=== PATIENT | female | born 1970 | race Caucasian/White ===

== ENCOUNTER 2017-09-30 19:22 | Inpatient (IN) ==
[2017-09-30] MEDS ORDERED: SODIUM CHLORIDE 1,000 ML IV STA (19:35)
[2017-09-30] MEDS ORDERED: ROCEPHIN 1 GM in SODIUM CHLORIDE 50 ML IV STA (19:36)
[2017-09-30] MEDS ORDERED: DUONEB NEB STA (19:36)
[2017-09-30] MEDS ORDERED: ROCEPHIN ONE (20:14)
--- NOTE | 2017-09-30 20:17 | CT ---
EXAM: CT chest without contrast HISTORY: Cough TECHNIQUE: Multi-slice transaxial helical. Coronal and sagital reformations were performed. COMPARISON: None FINDINGS: The heart is normal in size. Trace pericardial fluid is present. Minimal coronary artery calcificat ion is seen. The ascending aorta measures up to 41 mm in diameter. Small amount of fluid in the sup erior pericardial recesses are present. Small scattered mediastinal lymph nodes measure less than 10 mm in short axis. Visualized thyroid appears unremarkable. There is no axillary adenopathy. The gallbladder has been removed. Otherwise the partially imaged upper abdomen appears unremarkable. Osseous structures appea r unremarkable. Right upper lobe, right middle lobe, and left upper lobe patchy airspace opacities are present. Airw ay thickening is present. Minimal dependent atelectasis is present within the lung bases. No eviden ce of pleural effusion or pneumothorax is seen. IMPRESSION: 1. Multi focal bilateral pneumonia. Recommend follow-up CT chest in two - 3 months to ensure complet e resolution. 2. Superimposed airway thickening suggesting bronchiolitis. 3. Ascending thoracic aortic aneurysm measuring 41 mm. 4. Minimal coronary artery atherosclerosis. 5. Other incidental findings as above.
--- NOTE | 2017-09-30 20:23 | ED.PDOC ---
General ED Provider: Dr. DEANNE STEINBERG-ER Chief Complaint: Shortness of Air Stated Complaint: i went to clinic and was dx with flu--im no better--im still running fever and coughing Time Seen by Physician: 19:25 Mode of Arrival: Walk-In Information Source: Patient Exam Limitations: No limitations Nursing and Triage Documentation Reviewed and Agree: Yes Reviewed sepsis parameters & appropriate labs ordered?: Yes System Inflammatory Response Syndrome: Not Applicable Sepsis Protocol: For patient's 13 years and over: Temp is 96.8 and below OR 101 and greater Pulse >90 BPM Resp >20/minute Acutely Altered Mental Status Are patient's symptoms suggestive of a new infection, such as: -Pneumonia -Skin, Soft Tissue -Endocarditis -UTI -Bone, Joint Infection -Implantable Device -Acute Abdominal Infection -Wound Infection -Meningitis -Blood Stream Catheter Infection -Unknown Respiratory Complaint Exam - Respiratory Complaint/Exam Onset/Duration: 4 days Symptoms Are: Still present Timing: Constant, Intermittent Initial Severity: Mild Current Severity: Moderate Location: Chest Character: Reports: Productive cough Aggravating: Reports: URI Alleviating: Reports: Bronchodilators Associated Signs and Symptoms: Reports: Fever, Chills, URI, Nasal congestion, Sore throat, Decreased oral intake. Denies: Rapid breathing, Dyspnea, Chest pain, Wheezing, Hemoptysis, Dizziness, Calf pain, Calf swelling, Edema, Hoarseness, Sinus discomfort, Vomiting, Weight loss, Increased thirst, Increased appetite, Increased urination History of Healthcare-Acquired Pneumonia: No Home Oxygen Use: No Recent Stress Test: No Recent Echo/LV Function: No Current Antibiotic Use: No Current Asthma Medication Use: No Respiratory Distress: None Inadequate Respiratory Effort: No Dysphagia Present: No Stridor Present: No JVD Present: No Accessory Muscle Use: No Retractions: Not Present Diminished Breath Sounds: No Sinus Tenderness: None Grunting Respirations: No Kussmaul Respirations: No Differential Diagnoses: Pneumonia, Bronchitis, Influenza Non-Traumatic Chest Pain Syncope: EKG Performed Review of Systems - Review Of Systems Constitutional: Reports: Chills, Fever, Weakness, Loss of appetite Eyes: Reports: No symptoms Ears, Nose, Mouth, Throat: Reports: Nose discharge Respiratory: Reports: Cough Cardiac: Reports: No symptoms GI: Reports: No symptoms : Reports: No symptoms Musculoskeletal: Reports: No symptoms Skin: Reports: No symptoms Neurological: Reports: No symptoms Endocrine: Reports: No symptoms Hematologic/Lymphatic: Reports: No symptoms All Other Systems: Reviewed and Negative Past Medical History - Past Medical History Previously Healthy: Yes Endocrine: Reports: Unknown Cardiovascular: Reports: Unknown Respiratory: Reports: Unknown Hematological: Reports: Unknown Gastrointestinal: Reports: Unknown Genitourinary: Reports: Unknown Neuro/Psych: Reports: Unknown Musculoskeletal: Reports: Unknown Cancer: Reports: Unknown Last Menstrual Period: PT HAS HAD A HYSTERECTOMY - Surgical History General Surgical History: Reports: Unknown - Family History Family History: Reports: Unknown - Social History Smoking Status: Current every day smoker, Heavy tobacco smoker Hx Substance Use: No Alcohol Screening: Occasionally Lives: With family - Immunizations Tetanus Shot up to Date: Yes Physical Exam - Physical Exam Appearance: Ill-appearing Eyes: VENESSA, EOMI, Conjunctiva clear ENT: Rhinorrhea Neck: Supple Respiratory: Crackles, Rhonchi Cardiovascular: RRR GI/: Soft, Nontender, No masses, Bowel sounds normal, No Organomegaly Musculoskeletal: Normal strength, ROM intact, No edema, No calf tenderness Skin: Warm, Dry, Normal color Neurological: Sensation intact, Motor intact, Reflexes intact, Cranial nerves intact, Alert, Oriented Psychiatric: Affect appropriate, Mood appropriate Interpretation - Radiology Interpretation Radiology Interpretation By: Radiologist Radiology Results: Positive Exam Interpreted: CT Scan ("bilateral pneumonia") - EKG Interpretation Time of EKG #1: 20:24 Rate: Normal Rhythm: Sinus Ectopy: None ST Segment: Normal Interpretation: normal sinus rythym Physician Notification - Case Discussed Physician Notified: dr clark(he examined patient in ed) Time of Notification: 20:25 Critical Care Note - Critical Care Note Total Time (mins): 0 Course - Course Hematology/Chemistry: 09/30/17 19:55 09/30/17 19:55 Orders, Labs, Meds: Lab Review 09/30/17 09/30/17 09/30/17 19:30 19:34 19:55 WBC 9.59 RBC 5.05 Hgb 15.8 Hct 47.1 H MCV 93.3 MCH 31.3 H MCHC 33.5 RDW Coeff of Dg 13.2 Plt Count 275 Immature Gran % (Auto) 0.3 Neut % (Auto) 57.3 Lymph % (Auto) 26.9 [place] % (Auto) 14.3 H Eos % (Auto) 0.2 Baso % (Auto) 1.0 Immature Gran # (Auto) 0.0 Neut # 5.5 Lymph # 2.6 [place] # 1.4 Eos # 0.0 Baso # 0.1 Puncture Site Lb O2 Saturation 94.0 L ABG pH 7.414 ABG pCO2 32.4 L ABG pO2 71.0 L ABG HCO3 20.7 L ABG Total CO2 22 ABG Base Excess -4 L Eddie Test + FiO2 % 21.0 Sodium Potassium Chloride Carbon Dioxide Anion Gap BUN Creatinine Estimated GFR (MDRD) BUN/Creatinine Ratio Glucose Lactic Acid Calcium Total Bilirubin AST ALT Alkaline Phosphatase Total Protein Albumin Globulin Albumin/Globulin Ratio Procalcitonin Influenza A (Rapid) Negative by naat Influenza B (Rapid) Positive by naat H 09/30/17 09/30/17 09/30/17 19:55 19:55 19:55 WBC RBC Hgb Hct MCV MCH MCHC RDW Coeff of Dg Plt Count Immature Gran % (Auto) Neut % (Auto) Lymph % (Auto) [place] % (Auto) Eos % (Auto) Baso % (Auto) Immature Gran # (Auto) Neut # Lymph # [place] # Eos # Baso # Puncture Site O2 Saturation ABG pH ABG pCO2 ABG pO2 ABG HCO3 ABG Total CO2 ABG Base Excess Eddie Test FiO2 % Sodium 139 Potassium 3.5 Chloride 106 Carbon Dioxide 20 L Anion Gap 16.5 BUN 19 H Creatinine 1.14 Estimated GFR (MDRD) 51.00 BUN/Creatinine Ratio 16.66 Glucose 128 H Lactic Acid 15.2 Calcium 9.2 Total Bilirubin 0.4 AST 24 ALT 24 Alkaline Phosphatase 80 Total Protein 7.7 Albumin 3.3 L Globulin 4.4 Albumin/Globulin Ratio 0.75 Procalcitonin < 0.05 Influenza A (Rapid) Influenza B (Rapid) Orders Category Date Time Status ABG DRAW REQUEST Stat CARDIO 09/30/17 19:35 Completed EKG-(ED ONLY) Stat CARDIO 09/30/17 19:37 Completed NEBULIZER TREATMENT Stat CARDIO 09/30/17 19:36 Completed ED IV/MEDIPORT/POWERPORT .ONCE EMERGENCY 09/30/17 19:35 Active ABG Stat LAB 09/30/17 19:34 Completed BLOOD CULTURE (ED ONLY) Stat LAB 09/30/17 19:55 Received CBC W/ AUTO DIFF Stat LAB 09/30/17 19:55 Completed COMPREHENSIVE METABOLIC PANEL Stat LAB 09/30/17 19:55 Completed FLU A/B MOLECULAR Stat LAB 09/30/17 19:30 Completed LACTIC ACID Stat LAB 09/30/17 19:55 Completed MOLECULAR GROUP A STREP Stat LAB 09/30/17 19:30 Completed PROCALCITONIN Stat LAB 09/30/17 19:55 Completed 0.9 % Sodium Chloride [Saline Flush] MEDS 09/30/17 19:35 Ordered 1 syr IVF PRN PRN Ceftriaxone Sodium [Rocephin] MEDS 09/30/17 20:14 Discontinued 1 gm .ROUTE .STK-MED ONE Ceftriaxone Sodium [Rocephin] 1 gm MEDS 09/30/17 19:36 Discontinued 0.9 % Sodium Chloride [Sodium Chloride] 50 ml IV ONCE Ipratropium/Albuterol Neb [Duoneb] MEDS 09/30/17 19:36 Discontinued 1 vial NEB ONCE STA Sodium Chloride 0.9% [Sodium Chloride] 1,000 ml MEDS 09/30/17 19:[address] CHEST W/O CONTRAST Stat RADS 09/30/17 19:36 Completed Medications Generic Name Dose Route Start Last Admin Trade Name Freq PRN Reason Stop Dose Admin Sodium Chloride 1,000 mls @ 1,000 mls/hr 09/30/17 19:35 09/30/17 20:18 Sodium Chloride IV 09/30/17 20:34 1,000 mls/hr BOLUS STA Administration Sodium Chloride 1 syr 09/30/17 19:35 Saline Flush IVF PRN PRN To flush IV Discontinued Medications Generic Name Dose Route Start Last Admin Trade Name Freq PRN Reason Stop Dose Admin Albuterol/Ipratropium 1 vial 09/30/17 19:36 09/30/17 20:11 Duoneb NEB 09/30/17 19:37 1 vial ONCE STA Administration Ceftriaxone Sodium 1 gm/ 50 mls @ 75 mls/hr 09/30/17 19:36 09/30/17 20:19 Sodium Chloride IV 09/30/17 20:15 75 mls/hr ONCE STA Administration Vital Signs: Temp Pulse Resp BP Pulse Ox 09/30/17 19:23 99 F 104 H 36 H 137/88 96 Departure - Departure Time of Disposition: 20:25 Disposition: ADMITTED INPATIENT Discharge Problem: Influenza Pneumonia Qualifiers: Pneumonia type: due to unspecified organism Laterality: bilateral Lung location : unspecified part of lung Qualified Code(s): J18.9 - Pneumonia, unspecified organism Instructions: Influenza (ED) Condition: Fair Pt referred to PMD for follow-up: Yes IPMP verified?: No Allergies/Adverse Reactions: Allergies No Known Drug Allergies Adverse Reaction (Verified 09/30/17 19:33) Home Medications: Ambulatory Orders Bupropion HCl [Bupropion HCl Sr] 150 mg PO BID 09/30/17 Escitalopram Oxalate 10 mg PO DAILY 09/30/17 Esomeprazole Magnesium [Nexium 24Hr] 20 mg PO DAILY 09/30/17 Topiramate [Topamax] 50 mg PO BID 09/30/17 Triamcinolone Acetonide [Triamcinolone Acetonide 0.1% Ointment] 15 gm TP TID 07/07 Disposition Discussed With: Patient, Family
[2017-09-30] MEDS ORDERED: TYLENOL PO PRN (20:30)
[2017-09-30] MEDS ORDERED: NON-FORMULARY MEDICATION (Bupropion Hcl [Bupropion Hcl Sr] 150 MG) PO SCH (21:00)
[2017-09-30] MEDS: SODIUM CHLORIDE 1,000 ML IV SCH (21:28)
[2017-09-30 21:49] VITALS: BMI 28.6
[2017-09-30] MEDS ORDERED: WELLBUTRIN SR ONE ×2 (22:34→22:36)
[2017-09-30] MEDS ORDERED: KENALOG 0.1% TP ONE (22:36)
[2017-09-30] MEDS ORDERED: DUONEB NEB ONE (22:55)
[2017-09-30] MEDS: DUONEB NEB SCH (22:55)
[2017-09-30] MEDS: TOPAMAX PO SCH (22:57)
[2017-09-30] MEDS: VANCOMYCIN 1 GM in SODIUM CHLORIDE 250 ML IV SCH (23:16)
[2017-10-01] MEDS ORDERED: NORCO 5-325 PO PRN (00:31)
[2017-10-01] MEDS: DUONEB NEB SCH ×3 (05:04→20:00)
[2017-10-01] MEDS: PROTONIX PO SCH (07:42)
[2017-10-01] MEDS: VANCOMYCIN 1 GM in SODIUM CHLORIDE 250 ML IV SCH ×2 (08:08→20:04)
[2017-10-01] MEDS: TOPAMAX PO SCH ×2 (08:08→20:05)
[2017-10-01] MEDS: LEXAPRO PO SCH (08:08)
[2017-10-01] MEDS: TAMIFLU PO SCH ×2 (08:09→20:05)
[2017-10-01] MEDS: KENALOG 0.1% TP SCH ×3 (08:09→20:05)
[2017-10-01] MEDS: WELLBUTRIN SR PO SCH ×2 (08:09→20:05)
[2017-10-01] MEDS ORDERED: DECADRON 4 MG/ML SDV IM STA (08:21)
[2017-10-01] MEDS ORDERED: ESOMEPRAZOLE MAGNESIUM 20 MG PO SCH (09:00)
[2017-10-01] MEDS ORDERED: ZITHROMAX 500 MG in SODIUM CHLORIDE 250 ML IV SCH (09:00)
[2017-10-01] MEDS: ROCEPHIN 1 GM in SODIUM CHLORIDE 50 ML IV SCH (09:38)
[2017-10-01] MEDS: ZITHROMAX PO SCH (09:39)
--- NOTE | 2017-10-01 10:32 | DI ---
EXAM: Chest two view, frontal and lateral views. HISTORY: Pneumonia follow-up. COMPARISON: 09/30/2017. FINDINGS: Heart size is normal. There is no vascular congestion. Thin linear opacities are seen in the left lung base. Mild right upper lobe perifissural consolidation is stable. Small nodular dens ities in both lungs also appear unchanged. No pleural effusion or pneumothorax identified. Clips se en in the upper abdomen. No acute osseous abnormality. IMPRESSION: Stable appearance of the chest of consolidation, greatest in the right upper lobe. Follow-up radiogr aphs in 4-6 weeks recommended for reassessment.
--- NOTE | 2017-10-01 11:12 | PCM.CONS ---
CONSULTING PROVIDER: Dr. LEWIS PUGA ATTENDING PROVIDER: Dr. Farzana LORA DATE OF SERVICE: 10/01/17 SUBJECTIVE: This 46 year old WHITE/ F was hospitalized 09/30/17. The patient is seen by Sue Orosco APRN. The patient is lying in bed, alert. She came in to ER last night with coughing, mild shortness of breath and pleuritic type pain , positive for Flu B. Chest x-ray revealed bilateral pneumonia, small aortic aneurysm at 41 mm. The patient is a smoker and has family history of coronary artery disease. She states PCP is [facility] in [place]. REVIEW OF SYSTEMS: CONSTITUTIONAL: Fatigue. No night sweats. No malaise, lethargy. No fever or chills. HEENT: Eyes: No visual changes. No eye pain. No eye discharge. ENT: No runny nose. No epistaxis. No sinus pain. No odynophagia. No congestion. RESPIRATORY: Cough and congestion. No hemoptysis. No shortness of breath. CARDIOVASCULAR: No angina symptoms. No CHF symptoms. Pleuritic pain. No palpitations. No orthopnea. GASTROINTESTINAL: No abdominal pain. No nausea or vomiting. No diarrhea or constipation. No hematemesis. No hematochezia. GENITOURINARY: No urgency. No frequency. No dysuria. No hematuria. No obstructive symptoms. No discharge. No pain. No significant abnormal bleeding. MUSCULOSKELETAL: No musculoskeletal pain; no joint swelling. NEUROLOGICAL: Awake, alert, oriented to time, place and person. No headache. No neck pain. No syncope. No seizures. No dizziness. PSYCHIATRIC: Not anxious. No depression. No suicidal thoughts. No homicidal thoughts. SKIN: No rash. No lesions. No wounds. ENDOCRINE: No unexplained weight loss. No weight gain. HEMATOLOGIC/LYMPHATIC: No anemia. No purpura. No petechiae. No prolonged or excessive bleeding. No palpable lymph nodes. PHYSICAL EXAMINATION: GENERAL: The patient is awake, alert and oriented, lying in bed in no distress. VITAL SIGNS: Temperature 97.8 F, Pulse 78, Respiratory Rate 18, BP 126/78, Pulse Ox 94% HEENT: Head normocephalic, atraumatic. Eyes: Extraocular muscles are intact. Pupils are equal, round and reactive to light and accommodation. Ears: No lesions. Nose appeared normal. Throat: No exudate or erythema. NECK: Supple. No JVD, no carotid bruit. No lymphadenopathy or thyromegaly. LUNGS: Diminished breath sounds bilaterally. Clear to auscultation. Percussion note normal. Chest symmetrical. HEART: S1, S2, no S3. No murmurs. No cyanosis or clubbing. No ascites. Pulses: Dorsalis pedis and posterior tibial pulses +1 to +2 both sides. ABDOMEN: Soft. Non-tender. Bowel sounds active. No CVA tenderness. No mass felt. EXTREMITIES: No edema. Full range of motion of all extremities, equal. NEUROLOGIC: No focal deficit. Cranial nerves II through XII are grossly intact. No headache, no double vision or headache. SKIN: Warm and dry. Intact. Turgor-normal. LYMPHATIC: No palpable lymph nodes/no lymphedema. MUSCULOSKELETAL: Normal joints with no swelling. Muscle tone is normal. ASSESSMENT: 1. FLU B 2. BILATERAL PNEUMONIA 3. PLEURITIC PAIN 4. SMOKER 5. AORTIC ANEURYSM 41 mm RECOMMENDATIONS/PLAN: 1. Lipid profile 2. T4, TSH 3. A1C 4. 1 cc Decadron today Plan and coordination of the patient's care discussed in the presence of [employer]ing [employer] Operator and Nurse. CONDITION: Stable SCRIBED BY: Kourtney MARTÍNEZist scribed while in presence of service performed by Dr. LEWIS PUGA/SUE OROSCO APRN on 10/01/17 ([id number])
[2017-10-01] MEDS: SODIUM CHLORIDE 1,000 ML IV SCH (13:44)
[2017-10-01] MEDS ORDERED: LOVENOX SUBCUT SCH (20:00)
[2017-10-01] MEDS ORDERED: LOVENOX ONE (20:11)
[2017-10-02] MEDS: SODIUM CHLORIDE 1,000 ML IV SCH ×2 (06:09→20:24)
[2017-10-02] MEDS: DUONEB NEB SCH ×4 (06:10→19:25)
[2017-10-02] MEDS: PROTONIX PO SCH (06:35)
[2017-10-02] MEDS: ROCEPHIN 1 GM in SODIUM CHLORIDE 50 ML IV SCH (08:14)
[2017-10-02] MEDS: TOPAMAX PO SCH ×2 (08:16→20:23)
[2017-10-02] MEDS: ZITHROMAX PO SCH (08:16)
[2017-10-02] MEDS: LEXAPRO PO SCH (08:16)
[2017-10-02] MEDS: WELLBUTRIN SR PO SCH ×2 (08:16→20:23)
[2017-10-02] MEDS: TAMIFLU PO SCH ×2 (08:16→20:23)
[2017-10-02] MEDS: KENALOG 0.1% TP SCH ×3 (08:17→20:30)
--- NOTE | 2017-10-02 08:33 | HP ---
CHIEF COMPLAINT: Cough, fever and shortness of breath. SOURCE OF HISTORY: Patient, triage notes and MD notes from the ER. HISTORY OF PRESENT ILLNESS: The patient claimed that she began experiencing illness last Sunday, five days prior to presentation to the emergency room. She had fever, muscular aches, headaches, decreased appetite, but no vomiting. She presented to an urgent care in [place] two days later, and was told that she has influenza and was prescribed Promethazine DM cough syrup. The patient continued to be febrile with cough and now increasing shortness of breath prompting the emergency room visit. The patient was noted to have rales in both lung person without wheezing. WBC normal 9,590. Arterial blood gases showed moderate hypoxemia. PO2 71, PCO2 32.4, oxygen saturation 94 at room air , pH 7.414. Lactic acid normal at 15.2. Rapid influenza A and B positive for B. Procalcitonin less than 0.05. CT scan of the chest showed right upper and left upper lobe pneumonia including the right middle lobe. The patient was felt needing admission to the hospital for IV antibiotics and for the care and observation. Blood culture was done, as well as sputum was ordered. PAST PERSONAL HISTORY: The patient had cholecystectomy 1997, hysterectomy 1997 and she had a PAP smear 2016. FAMILY HISTORY: Mother had thyroid nodules. Grandfather had myocardial infarction. Father had congestive heart failure and diabetes mellitus. Grandmother had malignancy. 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 She does smoke cigarettes heavily and continuously. She does drink alcoholic beverages, but not every day. She does have the same address in [place], [place] with her mother. MEDICATIONS: Escitalopram Oxalate 10 mg daily Bupropion HCI 150 mg twice daily Triamcinolone Acetonide 15 grams ointment three times daily Topiramate 50 mg twice daily ALLERGIES: No known drug allergies. REVIEW OF SYSTEMS: CONSTITUTIONAL: The patient has fever and chills and fatigue with decreased appetite. MOTOR ELECTRICIAN: The patient has headache, but no syncopal episodes and no seizure activities. VISUAL: Denies any blurred vision, double vision or loss of vision. AUDITORY: Hearing is adequate without any dizziness and denies any pain or drainage. No tinnitus. RESPIRATORY: The patient is complaining of cough, slightly productive with some shortness of breath. CARDIOVASCULAR: The patient has chest pain described as sharp and aggravated by coughing. It is not an oppressive pain. GASTROINTESTINAL: GENITOURINARY: The patient denies any pain on urination or frequency. MUSCULOSKELETAL: The patient does have muscular aches. ENDOCRINE: Negative. INTEGUMENT: Denies any rash or pruritus. HEMATOLOGIC: No history of prolonged bleeding. PSYCHIATRIC: Affect is dull, probably because of the illness. PHYSICAL EXAMINATION: GENERAL: We have a 46 year old female legally admitted to the hospital because of fever, increasing shortness of breath and cough with bilateral upper lobe pneumonia on CT including the right middle lobe. She has moderate hypoxemia. HEAD: Unremarkable. FACE: Symmetrical and equal with no facial weakness. She denies any significant tenderness in the frontal or maxillary sinus areas to palpation under pressure. EYES: Pupils equal/reactive to light about 3 mm in size and round. Conjunctivae not pale. Sclerae not icteric. MOUTH: unremarkable. THROAT: No inflammation, tumors or exudate. NECK: No masses. No bruit. No tenderness. No rigidity. No adenopathy or adenitis. Neck has a good range of motion. CHEST: Symmetrical and equal with good expansion. No remarkable tenderness. LUNGS: Breath sounds are heard in both sides, diminished with rales more on the right side. No wheezing. HEART: Audible and regular with good tones. No murmurs. ABDOMEN: Flat, soft with no remarkable tenderness. No guarding. Bowel sounds are active. No masses palpable. EXTERNAL GENITALIA: Not examined. RECTAL: Not performed. LOWER EXTREMITIES: Essentially symmetrical and equal with no significant edema. UPPER EXTREMITIES: Symmetrical and equal. ASSESSMENT: 1. BILATERAL UPPER LOBE PNEUMONITIS 2. RIGHT MIDDLE LOBE PNEUMONITIS 3. MODERATE HYPOXEMIA 4. POSITIVE INFLUENZA B 5. CHRONIC TOBACCO USE AND ABUSE, PERSISTENT 6. HISTORY OF DEPRESSION ON MEDICATION 7. HISTORY OF GERD ON MEDICATION MTDD
[2017-10-02] MEDS: VANCOMYCIN 1 GM in SODIUM CHLORIDE 250 ML IV SCH ×2 (09:00→20:24)
--- NOTE | 2017-10-02 09:47 | PN ---
DATE OF VISIT: 10/01/17 The patient was in bed when I walked into the room. I did talk to the patient and she claimed that she is feeling some better. I did tell her that I had stopped the Tylenol for the fever. Her color is good. She is not cyanotic. The chest is expanding well. VITAL SIGNS: At 5:31 p.m. showed a temperature of 97.8, pulse 80, blood pressure 138/83, respiratory rate 20, oxygen saturation 94 at room air. LUNGS: The lungs has rales more on the right side, but no wheezing. HEART: Audible and regular with good tones. ABDOMEN: Nontender. This patient is receiving and IV consisting of normal saline at 75 cc per hour. Also receiving Vancomycin 1 gram IV every 12 hours. Protonix 40 mg daily IV. Rocephin 1 gram IV daily and was initiated on Tamiflu 75 every 12 hours from the emergency room. Zithromax 500 mg p.o. daily. She does also receive DuoNeb nebulizer ordered four times a day. ASSESSMENT: 1. BILATERAL UPPER LOBE PNEUMONITIS, STABLE CONDITION: Stable. MTDD
--- NOTE | 2017-10-02 11:27 | PN ---
The patient was seen on consultation 10/01/[address] Travis, Hospitalist [facility]
--- NOTE | 2017-10-02 11:35 | CONS ---
DATE OF SERVICE: 10/01/17 CONSULT FOLLOWUP SUBJECTIVE: 46 year old white female seen on consultation because of chest pain. The patient 's chest pain seems to be pleuritic. She is Flu B positive. She has acute bronchitis, cough with congestion with pleuritic type of pain. REVIEW OF SYSTEMS: CONSTITUTIONAL: No night sweats. No fatigue, malaise, lethargy. No fever or chills. HEENT: Eyes: No visual changes. No eye pain. No eye discharge. ENT: No runny nose. No epistaxis. No sinus pain. No sore throat. No odynophagia. No ear pain. No congestion. RESPIRATORY: No cough, no congestion. No hemoptysis. CARDIOVASCULAR: No angina symptoms. No CHF symptoms. No atypical chest pain for CAD. No palpitations. Shortness of breath with cough and congestion. Pleuritic type of pain with cough. GASTROINTESTINAL: No abdominal pain. No nausea or vomiting. No diarrhea or constipation. No hematemesis. No hematochezia. GENITOURINARY: No urgency. No frequency. No dysuria. No hematuria. No obstructive symptoms. No discharge. No pain. No significant abnormal bleeding. MUSCULOSKELETAL: No musculoskeletal pain. No joint swelling. No arthritis. NEUROLOGICAL: No headache. No neck pain. No syncope. No seizures. No dizziness. PSYCHIATRIC: Not anxious. No depression. No suicidal thoughts. No homicidal thoughts. SKIN: No rash. No lesions. No wounds. ENDOCRINE: No unexplained weight loss. No weight gain. HEMATOLOGIC/LYMPHATIC: No anemia. No purpura. No petechiae. No prolonged or excessive bleeding. No palpable lymph nodes. PHYSICAL EXAMINATION: GENERAL: The patient is oriented to time, place and person. VITAL SIGNS: Temperature 97.8, pulse 78, respiratory rate 18, blood pressure 126 /78 and pulse ox 94%. HEENT: Head normocephalic, atraumatic. Eyes: Extraocular muscles are intact. Pupils are equal, round and reactive to light and accommodation. Ears: No lesions. Nose appeared normal. Throat: No exudate or erythema. NECK: Supple. No JVD, no carotid bruit. No lymphadenopathy or thyromegaly. LUNGS: Decreased breath sounds but clear to auscultation. Percussion note normal. Chest symmetrical. HEART: S1, S2, no S3. No murmurs. No cyanosis or clubbing. No ascites. Pulses: Dorsalis pedis and posterior tibial pulses +1 to +2 both sides. ABDOMEN: Soft. Nontender. Bowel sounds active. No CVA tenderness. No mass felt. EXTREMITIES: No edema. Full range of motion of all extremities, equal. NEUROLOGIC: No focal deficit. Cranial nerves II through XII are grossly intact. No headache, no double vision or headache. SKIN: Not dry. Intact. Turgor - normal. LYMPHATIC: No palpable lymph nodes/no lymphedema. MUSCULOSKELETAL: Normal joints with no swelling. Muscle tone is normal. ASSESSMENT: 1. Chest pain likely pleuritic type 2. Acute bronchitis 3. Influenza B positive RECOMMENDATIONS: 1. Cardiovascular status is stable 2. Agreed with Decadron IM 3. Lipid profile 4. T4 TSH 5. Will Monitor the cardiovascular status. 6. EKG looks sinus rhythm, no acute changes CONDITION: Stable. MTDD
[2017-10-02] MEDS: LOVENOX SUBCUT SCH (20:23)
[2017-10-03] MEDS: PROTONIX PO SCH (05:31)
[2017-10-03] MEDS: DUONEB NEB SCH ×3 (06:00→14:01)
[2017-10-03] MEDS: ROCEPHIN 1 GM in SODIUM CHLORIDE 50 ML IV SCH (08:36)
[2017-10-03] MEDS: SODIUM CHLORIDE 1,000 ML IV SCH ×2 (08:36→23:40)
[2017-10-03] MEDS: ZITHROMAX PO SCH (08:36)
[2017-10-03] MEDS: LEXAPRO PO SCH (08:36)
[2017-10-03] MEDS: WELLBUTRIN SR PO SCH ×2 (08:36→21:07)
[2017-10-03] MEDS: TAMIFLU PO SCH ×2 (08:36→21:07)
[2017-10-03] MEDS: TOPAMAX PO SCH ×2 (08:36→21:07)
[2017-10-03] MEDS: KENALOG 0.1% TP SCH ×3 (08:37→21:08)
[2017-10-03] MEDS: VANCOMYCIN 1 GM in SODIUM CHLORIDE 250 ML IV SCH ×2 (09:29→21:08)
--- NOTE | 2017-10-03 15:02 | PN ---
DATE OF VISIT: 10/02/17 The patient was seen in the evening. VITAL SIGNS: At 6 p.m. showed a temperature of 97.6, pulse 74, blood pressure 154/92, respiratory rate 18, oxygen saturation 97 at room air. LUNGS: Clear to auscultation, although the breath sounds on the right is slightly diminished compared to the left. There is no wheezing. HEART: Audible and regular with good tones. We are still waiting for the influenza A and B antibodies. CBC, as well as CMP is already ordered for tomorrow, 10/03/2017. Group A strep is negative. Blood cultures are still negative and sputum light growth of normal sidney. I asked her how she feels and she claimed that she is feeling better. She is not coughing at much. CONDITION: Improved and stable. SAMANTHA
--- NOTE | 2017-10-03 15:11 | PN ---
DATE OF VISIT: 10/03/17 46 year old female who is admitted to the hospital because of bilateral pneumonitis upper lobe, plus right middle lobe. The patient is feeling better and her appetite is better. She is not dyspneic, nor tachypneic and no significant pain in the chest today. VITAL SIGNS: At 10 a.m. showed a temperature of 97.6, pulse 80, blood pressure 143/88, respiratory rate 12, oxygen saturation 97 at room air. GENERAL APPEARANCE: Good. No cyanosis. LUNGS: Clear to auscultation in both sides. She did have rales more on the right side initially, but that has resolved. HEART: Audible and regular with good tones. No murmurs and not tachycardic. ABDOMEN: No tenderness. LOWER EXTREMITIES: She denies any pain in both lower legs. The patient is receiving prophylactic Lovenox. She is still on Zithromax p.o. 500 mg daily and Ceftriaxone 1 gram IV daily and Vancomycin 1 gram IV every 12 hours. She is also receiving Tamiflu 75 mg twice a day. The Omeprazole, which is a home medication, is discontinued. We are waiting for the influenza A and B antibodies. This patient was positive for influenza B bu nuclear amplification. Follow up chest x-ray tomorrow and see how that pneumonia has progressed or improved from her admission 09/30/2017. SAMANTHA
[2017-10-03] MEDS: LOVENOX SUBCUT SCH (21:07)
[2017-10-04] MEDS: DUONEB NEB SCH ×5 (00:30→20:08)
[2017-10-04] MEDS: ROCEPHIN 1 GM in SODIUM CHLORIDE 50 ML IV SCH (09:04)
[2017-10-04] MEDS: KENALOG 0.1% TP SCH ×3 (09:06→20:31)
[2017-10-04] MEDS: TAMIFLU PO SCH ×2 (09:07→20:27)
[2017-10-04] MEDS: LEXAPRO PO SCH (09:07)
[2017-10-04] MEDS: ZITHROMAX PO SCH (09:08)
[2017-10-04] MEDS: TOPAMAX PO SCH ×2 (09:08→20:27)
[2017-10-04] MEDS: WELLBUTRIN SR PO SCH ×2 (09:08→20:27)
[2017-10-04] MEDS: VANCOMYCIN 1 GM in SODIUM CHLORIDE 250 ML IV SCH ×2 (09:42→20:24)
--- NOTE | 2017-10-04 13:23 | DI ---
Exam: Two x-rays of the chest. Comparison: 10/01/2017. Reason for exam: Follow-up pneumonia. FINDINGS: No pneumothorax or pleural effusion. There are patchy airspace opacities in the left lung base. The cardiac silhouette is unchanged and not enlarged. The imaged osseous structures appear g rossly unremarkable without acute fracture. Impression: Similar appearing patchy airspace opacities in the left lower lobe likely atelectasis or pneumonia. No focal airspace consolidation is seen.
[2017-10-04] MEDS: SODIUM CHLORIDE 1,000 ML IV SCH (13:33)
--- NOTE | 2017-10-04 13:34 | CONS ---
DATE OF SERVICE: 10/02/17 CONSULT FOLLOWUP SUBJECTIVE: 46-year-old white female seen on consultation. The patient has flu symptoms with influenza positive. Her condition is improving. She has pleuritic pain. No symptoms of CHF or coronary insufficiency. PHYSICAL EXAMINATION: GENERAL: The patient is oriented to time, place and person. HEENT: Head normocephalic, atraumatic. Eyes: Extraocular muscles are intact. Pupils are equal, round and reactive to light and accommodation. Ears: No lesions. Nose appeared normal. Throat: No exudate or erythema. NECK: Supple. No JVD, no carotid bruit. No lymphadenopathy or thyromegaly. LUNGS: Decreased breath sounds but clear to auscultation. Percussion note normal. Chest symmetrical. HEART: S1, S2, no S3. No murmurs. No cyanosis or clubbing. No ascites. Pulses: Dorsalis pedis and posterior tibial pulses +1 to +2 both sides. ABDOMEN: Soft. Nontender. Bowel sounds active. No CVA tenderness. No mass felt. EXTREMITIES: No edema. Full range of motion of all extremities, equal. NEUROLOGIC: No focal deficit. Cranial nerves II through XII are grossly intact. No headache, no double vision or headache. SKIN: Not dry. Intact. Turgor - normal. LYMPHATIC: No palpable lymph nodes/no lymphedema. MUSCULOSKELETAL: Normal joints with no swelling. Muscle tone is normal. ASSESSMENT: 1. PLEURITIC CHEST PAIN 2. ACUTE BRONCHITIS 3. FLU SYNDROME RECOMMENDATIONS: 1. Continue management 2. The patient's cardiovascular status is stable Thanks for the referral. [facility]
[2017-10-04] MEDS ORDERED: TYLENOL PO STA (17:39)
[2017-10-04] MEDS: LOVENOX SUBCUT SCH (20:28)
[2017-10-05] MEDS: SODIUM CHLORIDE 1,000 ML IV SCH ×3 (03:35→19:02)
[2017-10-05] MEDS: DUONEB NEB SCH ×3 (05:03→14:36)
[2017-10-05] MEDS: TOPAMAX PO SCH (09:13)
[2017-10-05] MEDS: ROCEPHIN 1 GM in SODIUM CHLORIDE 50 ML IV SCH (09:13)
[2017-10-05] MEDS: LEXAPRO PO SCH (09:13)
[2017-10-05] MEDS: ZITHROMAX PO SCH (09:14)
[2017-10-05] MEDS: WELLBUTRIN SR PO SCH (09:14)
[2017-10-05] MEDS: KENALOG 0.1% TP SCH ×2 (09:15→15:00)
[2017-10-05] MEDS: TAMIFLU PO SCH (09:15)
[2017-10-05] MEDS: VANCOMYCIN 1 GM in SODIUM CHLORIDE 250 ML IV SCH (09:57)
[2017-10-05 15:13] VITALS: BP 140/82; TEMP 97.9
--- NOTE | 2017-10-12 15:47 | DS ---
PATIENT IDENTIFICATION: 46 year old female presented to [place] [facility] because of continued fever, muscular aches, Headaches, decreased appetite. No vomiting or diarrhea. She was seen at Urgent Care in [place] three days prior to the ER visit at [place] and was advised that she had influenza. She was prescribed Promethazine DM cough syrup. HOSPITAL COURSE: The patient did experience shortness of breath prompting emergency room visit. Atrial blood gasses showed moderate hypoxemia, pO2 71 normal pH and Rapid A and B showed a positive B Influenza but nuclear amplification. CT chest showed upper lobe pneumonitis right and left and right middle lobe. The patient was admitted to the hospital for the treatment of pneumonitis plus hypoxemia. LUNGS: Breath sounds are diminished in both lung person with rales bilaterally. Rales seems to be more on the right. No expiratory wheezing. HEART: Normal sinus rhythm with no murmurs ABDOMEN: Unremarkable CBC 09/30/17; normal WBC, normal Hgb and hct, atrial blood gasses; oxygen saturation 94, pH 7.414, pCO2 32.4, pO2 71 and HCO3 20.7 and total CO2 22 and base excess -4. The Chemistries were essentially normal except for slightly high sugar at 128 and lower albumin 3.7. BUN 20, EGFR 51. This patient's medications prior to this admission consisted of Lexapro 10mg daily, Wellbutrin SR 150mg twice a day, Nexium 24 hours 20mg daily, Triamcinolone acetonide 15 gram tube 1% applied three times a day and Topamax 50mg tablet twice a day. No obvious to me on why Topamax was prescribed. The patient was continued on her home medications. She was given Ceftriaxone 1gram intervenously daily, Azithromycin 500mg PO daily. The Azithromycin is given PO since there is lack of IV fluids nationally. She was given Decadron 4mg IV once. She also was placed on Tamiflu 75mg Q 12 hours. Lovenox 40mg was given subcut daily and DUO NEB nebulizer every 6 hours. The patient during this hospitalized remained afebrile and her vital signs were stable. Her oxygen saturation had improved and her oxygen saturation at room air ranged from 94-98% with supplemental oxygen. Her blood pressure at times were slightly above and it might be related to the nebulizer treatment. Her appetite has improved towards the last day and the day of discharge to 100% of dinner. The patient's chest x-ray 10/04/2017 showed resolution of the right upper and left upper lobe infiltrates as well as the right middle lobe. The questionable infiltrate or atelectasis at the left lower base. I had review the x-ray with the radiologist. The patient on the day of discharge was alert and feeling better and was ready to go. She wanted also to go home. She claimed that she feels much better and indeed she is eating better. Vital signs at 2:00pm 10/05/17 showed a temperature of 97.9, pulse 68, blood pressure 140/82, respiratory rate 15, oxygen saturation 96% at room air. LUNGS: Clear to auscultation HEART: Audible and regular with good tones. LOWER EXTREMITIES: She denied any tenderness in the calf muscles She is to resume all her previous medications and was prescribed Omnicef 300mg capsule to be taken every 12 hours. She was instructed to see her primary provider and she told me that the place is next to her house and so she is going to see the provider the following Sunday of her discharge. She was also further instructed to not resume smoking. She should go back to work depending upon the judgement of the primary provider. FINAL DIAGNOSES: 1. Bilateral upper lobe pneumonia, resolved 2. Right middle lobe pneumonia, resolved 3. Moderate hypoxemia resolved 4. Chronic tobacco use and abuse, persistent 5. History of depression on medication 6. History of GERD on medication 7. Chest pain, probably noncardiac, this patient was seen by therapy site coordinator because of the pain that she had at the time of her admission PROGNOSIS: Guarded. MTDD
--- NOTE | 2017-10-24 14:37 | PN ---
DATE OF VISIT: 10/04/17 SUBJECTIVE: The patient today is alert and feeling much better. She will cough but less and still somewhat productive. The Influenza A antibody titer is 1:32 and B is 1:8. This would need a convalescent serum testing. LUNGS: Course breathing sounds but no wheezing at the bases Chest x-ray today showed similar appearing patchy airspace opacities in the left lower lobe likely atelectasis or pneumonia. No focal airspace consolidation is seen. Chest x-ray on the showed stable consolidation greatest on the right upper lobe. The chest x-ray on 10/04/17 does not indicate any abnormality in the upper lobes. I had discussed this with the patient. VITAL SIGNS: Temperature 97, pulse 76, blood pressure 156/101, respiratory rate 20, oxygen saturation 96 at room air. There were no labs done today but there will be tomorrow. CONDITION: Improved. The upper lobe entities are not longer seen on this x-ray today 10/04/17. ALANAD
== END 2017-10-05 18:57 | disposition home or self-care (01) | DRG 195 ==
LOC: ED 19:22 → MEDSURG B 20:45
PROVIDERS: ADMIT General Practice; ATTEND General Practice
DX: J10.00 Influenza due to other identified influenza virus with unspecified type of pneumonia (principal); R09.02 Hypoxemia; R07.81 Pleurodynia; J20.9 Acute bronchitis, unspecified; I71.9 Aortic aneurysm of unspecified site, without rupture; R06.02 Shortness of breath; R09.89 Other specified symptoms and signs involving the circulatory and respiratory systems; F32.9 Major depressive disorder, single episode, unspecified; K21.9 Gastro-esophageal reflux disease without esophagitis; F17.210 Nicotine dependence, cigarettes, uncomplicated; Z82.49 Family history of ischemic heart disease and other diseases of the circulatory system; Z79.899 Other long term (current) drug therapy
CPT/HCPCS: 36415; 80053; 80061; 80202; 82803; 83036; 83605; 84145; 84439; 84443; 85007; 85025; 86710; 87040; 87070; 87502; 87651; 93005; 93010; 94640; 96365; 99223; 99231; 99233; 99239; 99255; 99284